=== PATIENT | female | born 1960 | race Caucasian/White ===

== ENCOUNTER → 2016-07-11 | Outpatient (CLI) | payer BC ==
[~2016-07-11] MED LIST: ACET325T38 PO; CALC-939 PO; DOCU100T2 PO; HYDR-3812 PO; IBUP-1773 PO; INUL2.5T PO; INUL2TAB8 PO; L GA1CAP2 PO; MULT-192 PO; NAPR-689 PO; [UNRECOGNIZED DRUG - CODE] PO
--- OUTSIDE RECORDS SUMMARY | 2016-07-11 11:03 | XMS REPORT | Continuity of Care Document ---
Author Author Count Includes [facility] Address Unknown Phone Unavailable Allergies Active Description Code Type Severity Reaction Onset Reported/Identified Relationship to Patient Clinical Status Yes Latex OA N/A N/A 10/20/2009 Yes sulfadoxine Drug Allergy N/A N/A 10/20/2009 Yes sulfamethoxazole [id number] Drug Allergy Unknown N/A 05/13/2014 Yes trimethoprim [id number] Drug Allergy Unknown N/A 05/13/2014 Medications Problems Date Dx Coded Attending Type Code Diagnosis Diagnosed By 02/05/2008 MAGALLON DO, TITI K 296.90 MOOD DISORDER 02/05/2008 MAGALLON DO, TITI K 625.0 DYSPAREUNIA 02/05/2008 MAGALLON DO, TITI K 296.90 MOOD DISORDER 02/05/2008 MAGALLON DO, TITI K 625.0 DYSPAREUNIA 02/05/2008 MAGALLON DO, TITI K 296.90 MOOD DISORDER 02/05/2008 MAGALLON DO, TITI K 625.0 DYSPAREUNIA 02/05/2008 MAGALLON DO, TITI K 296.90 MOOD DISORDER 02/05/2008 MAGALLON DO, TITI K 625.0 DYSPAREUNIA 02/05/2008 MAGALLON DO, TITI K 296.90 MOOD DISORDER 02/05/2008 MAGALLON DO, TITI K 625.0 DYSPAREUNIA 02/05/2008 MAGALLON DO, TITI K 296.90 MOOD DISORDER 02/05/2008 MAGALLON DO, TITI K 625.0 DYSPAREUNIA 02/05/2008 MAGALLON DO, TITI K 296.90 MOOD DISORDER 02/05/2008 MAGALLON DO, TITI K 625.0 DYSPAREUNIA 02/05/2008 MAGALLON DO, TITI K 296.90 MOOD DISORDER 02/05/2008 MAGALLON DO, TITI K 625.0 DYSPAREUNIA 02/05/2008 [employer] ROCK L 296.90 MOOD DISORDER 02/05/2008 [employer] ROCK L 625.0 DYSPAREUNIA 02/05/2008 BRITNI CARTWRIGHT APRN 296.90 MOOD DISORDER 02/05/2008 BRITNI CARTWRIGHT APRN E 625.0 DYSPAREUNIA 02/05/2008 TITI MAGALLON DO K 296.90 MOOD DISORDER 02/05/2008 SHERITA LUCAS TITI K 625.0 DYSPAREUNIA 03/31/2008 SHERITA LUCAS TIIT K V06.5 DT, TETANUS-DIPHTHERIA [Td] 03/31/2008 SHERITA LUCAS TITI K V06.5 DT, TETANUS-DIPHTHERIA [Td] 03/31/2008 SHERITA LUCAS TITI K V06.5 DT, TETANUS-DIPHTHERIA [Td] 03/31/2008 SHERITA LUCAS TITI K V06.5 DT, TETANUS-DIPHTHERIA [Td] 03/31/2008 SHERITA LUCAS TITI K V06.5 DT, TETANUS-DIPHTHERIA [Td] 03/31/2008 SHERITA LUCAS TITI K V06.5 DT, TETANUS-DIPHTHERIA [Td] 03/31/2008 SHERITA LUCAS TITI K V06.5 DT, TETANUS-DIPHTHERIA [Td] 03/31/2008 SHERITA LUCAS TITI K V06.5 DT, TETANUS-DIPHTHERIA [Td] 03/31/2008 ROCK BETTS APRN V06.5 DT, TETANUS-DIPHTHERIA [Td] 03/31/2008 BRITNI CARTWRIGHT APRN E V06.5 DT, TETANUS-DIPHTHERIA [Td] 03/31/2008 SHERITA LUCAS TITI K V06.5 DT, TETANUS-DIPHTHERIA [Td] 04/19/2008 JAY MAGALLON DOA K 524.60 TEMPOROMANDIBULAR JOINT DISORDERS UNSPECIFIED 04/19/2008 SHERITA LUCAS TITI K 524.60 TEMPOROMANDIBULAR JOINT DISORDERS UNSPECIFIED 04/19/2008 SHERITA LUCAS TITI K 524.60 TEMPOROMANDIBULAR JOINT DISORDERS UNSPECIFIED 04/19/2008 SHERITA LUCAS TITI K 524.60 TEMPOROMANDIBULAR JOINT DISORDERS UNSPECIFIED 04/19/2008 SHERITA LUCAS TITI K 524.60 TEMPOROMANDIBULAR JOINT DISORDERS UNSPECIFIED 04/19/2008 SHERITA LUCAS TITI K 524.60 TEMPOROMANDIBULAR JOINT DISORDERS UNSPECIFIED 04/19/2008 MAGALLON DO, TITI K 524.60 TEMPOROMANDIBULAR JOINT DISORDERS UNSPECIFIED 04/19/2008 MAGALLON DO, TITI K 524.60 TEMPOROMANDIBULAR JOINT DISORDERS UNSPECIFIED 04/19/2008 ROCK BETTS APRN 524.60 TEMPOROMANDIBULAR JOINT DISORDERS UNSPECIFIED 04/19/2008 CHAY BARRIENTOSBRITNI Scott 524.60 TEMPOROMANDIBULAR JOINT DISORDERS UNSPECIFIED 04/19/2008 MAGALLON DO, TITI K 524.60 TEMPOROMANDIBULAR JOINT DISORDERS UNSPECIFIED 06/10/2008 MAGALLON DO, TITI K 381.10 OTITIS MEDIA SIMPLE OR UNSPECIFIED 06/10/2008 MAGALLON DO, TITI K 382.00 OTITIS MEDIA ACUTE WITHOUT SPONTANEOUS RUPTURE EARDRUM 06/10/2008 MAGALLON DO, TITI K 388.70 EAR ACHE 06/10/2008 MAGALLON DO, TITI K 381.10 OTITIS MEDIA SIMPLE OR UNSPECIFIED 06/10/2008 MAGALLON DO, TITI K 382.00 OTITIS MEDIA ACUTE WITHOUT SPONTANEOUS RUPTURE EARDRUM 06/10/2008 MAGALLON DO, TITI K 388.70 EAR ACHE 06/10/2008 MAGALLON DO, TITI K 381.10 OTITIS MEDIA SIMPLE OR UNSPECIFIED 06/10/2008 MAGALLON DO, TITI K 382.00 OTITIS MEDIA ACUTE WITHOUT SPONTANEOUS RUPTURE EARDRUM 06/10/2008 MAGALLON DO, TITI K 388.70 EAR ACHE 06/10/2008 MAGALLON DO, TITI K 381.10 OTITIS MEDIA SIMPLE OR UNSPECIFIED 06/10/2008 MAGALLON DO, TITI K 382.00 OTITIS MEDIA ACUTE WITHOUT SPONTANEOUS RUPTURE EARDRUM 06/10/2008 MAGALLON DO, TITI K 388.70 EAR ACHE 06/10/2008 MAGALLON DO, TITI K 381.10 OTITIS MEDIA SIMPLE OR UNSPECIFIED 06/10/2008 MAGALLON DO, TITI K 382.00 OTITIS MEDIA ACUTE WITHOUT SPONTANEOUS RUPTURE EARDRUM 06/10/2008 MAGALLON DO, TITI K 388.70 EAR ACHE 06/10/2008 MAGALLON DO, TITI K 381.10 OTITIS MEDIA SIMPLE OR UNSPECIFIED 06/10/2008 MAGALLON DO, TITI K 382.00 OTITIS MEDIA ACUTE WITHOUT SPONTANEOUS RUPTURE EARDRUM 06/10/2008 MAGALLON DO, TITI K 388.70 EAR ACHE 06/10/2008 MAGALLON DO, TITI K 381.10 OTITIS MEDIA SIMPLE OR UNSPECIFIED 06/10/2008 MAGALLON DO, TITI K 382.00 OTITIS MEDIA ACUTE WITHOUT SPONTANEOUS RUPTURE EARDRUM 06/10/2008 MAGALLON DO, TITI K 388.70 EAR ACHE 06/10/2008 MAGALLON DO, TITI K 381.10 OTITIS MEDIA SIMPLE OR UNSPECIFIED 06/10/2008 MAGALLON DO, TITI K 382.00 OTITIS MEDIA ACUTE WITHOUT SPONTANEOUS RUPTURE EARDRUM 06/10/2008 MAGALLON DO, TITI K 388.70 EAR ACHE 06/10/2008 [employer] ROCK L 381.10 OTITIS MEDIA SIMPLE OR UNSPECIFIED 06/10/2008 [employer], ROCK L 382.00 OTITIS MEDIA ACUTE WITHOUT SPONTANEOUS RUPTURE EARDRUM 06/10/2008 [employer], ROCK L 388.70 EAR ACHE 06/10/2008 [employer], BRITNI E 381.10 OTITIS MEDIA SIMPLE OR UNSPECIFIED 06/10/2008 [employer], BRITNI E 382.00 OTITIS MEDIA ACUTE WITHOUT SPONTANEOUS RUPTURE EARDRUM 06/10/2008 [employer], BRITNI E 388.70 EAR ACHE 06/10/2008 MAGALLON DO, TITI K 381.10 OTITIS MEDIA SIMPLE OR UNSPECIFIED 06/10/2008 MAGALLON DO, TITI K 382.00 OTITIS MEDIA ACUTE WITHOUT SPONTANEOUS RUPTURE EARDRUM 06/10/2008 MAGALLON DO, TITI K 388.70 EAR ACHE 10/20/2009 MAGALLON DO, TITI K 692.6 CONTACT DERMATITIS AND OTHER ECZEMA, DUE TO PLANTS [EXCEPT FOOD] 10/20/2009 MAGALLON DO, TITI K 692.6 CONTACT DERMATITIS AND OTHER ECZEMA, DUE TO PLANTS [EXCEPT FOOD] 10/20/2009 MAGALLON DO, TITI K 692.6 CONTACT DERMATITIS AND OTHER ECZEMA, DUE TO PLANTS [EXCEPT FOOD] 10/20/2009 MAGALLON DO, TITI K 692.6 CONTACT DERMATITIS AND OTHER ECZEMA, DUE TO PLANTS [EXCEPT FOOD] 10/20/2009 MAGALLON DO, TITI K 692.6 CONTACT DERMATITIS AND OTHER ECZEMA, DUE TO PLANTS [EXCEPT FOOD] 10/20/2009 MAGALLON DO, TITI K 692.6 CONTACT DERMATITIS AND OTHER ECZEMA, DUE TO PLANTS [EXCEPT FOOD] 10/20/2009 MAGALLON DO, TITI K 692.6 CONTACT DERMATITIS AND OTHER ECZEMA, DUE TO PLANTS [EXCEPT FOOD] 10/20/2009 MAGALLON DO, TITI K 692.6 CONTACT DERMATITIS AND OTHER ECZEMA, DUE TO PLANTS [EXCEPT FOOD] 10/20/2009 ROCK BETTS APRN L 692.6 CONTACT DERMATITIS AND OTHER ECZEMA, DUE TO PLANTS [EXCEPT FOOD] 10/20/2009 BRITNI CARTWRIGHT APRN E 692.6 CONTACT DERMATITIS AND OTHER ECZEMA, DUE TO PLANTS [EXCEPT FOOD] 10/20/2009 MAGALLON DO, TITI K 692.6 CONTACT DERMATITIS AND OTHER ECZEMA, DUE TO PLANTS [EXCEPT FOOD] 05/03/2010 MAGALLON DO, TITI K 300.4 MO DYSTHYMIC DISORDER 05/03/2010 MAGALLON DO, TITI K 300.4 MO DYSTHYMIC DISORDER 05/03/2010 MAGALLON DO, TITI K 300.4 MO DYSTHYMIC DISORDER 05/03/2010 MAGALLON DO, TITI K 300.4 MO DYSTHYMIC DISORDER 05/03/2010 MAGALLON DO, TITI K 300.4 MO DYSTHYMIC DISORDER 05/03/2010 MAGALLON DO, TITI K 300.4 MO DYSTHYMIC DISORDER 05/03/2010 MAGALLON DO, TITI K 300.4 MO DYSTHYMIC DISORDER 05/03/2010 MAGALLON DO, TITI K 300.4 MO DYSTHYMIC DISORDER 05/03/2010 ROCK BETTS APRN L 300.4 MO DYSTHYMIC DISORDER 05/03/2010 BRITIN CARTWRIGHT APRN E 300.4 MO DYSTHYMIC DISORDER 05/03/2010 MAGALLON DO, TITI K 300.4 MO DYSTHYMIC DISORDER 05/11/2010 MAGALLON DO, TITI K 278.02 OVERWEIGHT 05/11/2010 MAGALLON DO, TITI K V77.1 SCREENING FOR DIABETES MELLITUS 05/11/2010 MAGALLON DO, TITI K 278.02 OVERWEIGHT 05/11/2010 MAGALLON DO, TITI K V77.1 SCREENING FOR DIABETES MELLITUS 05/11/2010 MAGALLON DO, TITI K 278.02 OVERWEIGHT 05/11/2010 MAGALLON DO, TITI K V77.1 SCREENING FOR DIABETES MELLITUS 05/11/2010 MAGALLON DO, TITI K 278.02 OVERWEIGHT 05/11/2010 MAGALLON DO, TITI K V77.1 SCREENING FOR DIABETES MELLITUS 05/11/2010 MAGALLON DO, TITI K 278.02 OVERWEIGHT 05/11/2010 MAGALLON DO, TITI K V77.1 SCREENING FOR DIABETES MELLITUS 05/11/2010 MAGALLON DO, TITI K 278.02 OVERWEIGHT 05/11/2010 MAGALLON DO, TITI K V77.1 SCREENING FOR DIABETES MELLITUS 05/11/2010 MAGALLON DO, TITI K 278.02 OVERWEIGHT 05/11/2010 MAGALLON DO, TITI K V77.1 SCREENING FOR DIABETES MELLITUS 05/11/2010 MAGALLON DO, TITI K 278.02 OVERWEIGHT 05/11/2010 MAGALLON DO, TITI K V77.1 SCREENING FOR DIABETES MELLITUS 05/11/2010 [employer] ROCK L 278.02 OVERWEIGHT 05/11/2010 [employer], ROCK L V77.1 SCREENING FOR DIABETES MELLITUS 05/11/2010 [employer]DONALDE E 278.02 OVERWEIGHT 05/11/2010 [employer]DE E V77.1 SCREENING FOR DIABETES MELLITUS 05/11/2010 MAGALLON DO, TIIT K 278.02 OVERWEIGHT 05/11/2010 MAGALLON DO, TITI K V77.1 SCREENING FOR DIABETES MELLITUS 06/02/2013 MAGALLON DO, TITI K 461.1 ACUTE FRONTAL SINUSITIS 06/02/2013 MAGALLON DO, TITI K 461.1 ACUTE FRONTAL SINUSITIS 06/02/2013 MAGALLON DO, TITI K 461.1 ACUTE FRONTAL SINUSITIS 06/02/2013 MAGALLON DO, TITI K 461.1 ACUTE FRONTAL SINUSITIS 06/02/2013 MAGALLON DO, TITI K 461.1 ACUTE FRONTAL SINUSITIS 06/02/2013 MAGALLON DO, TITI K 461.1 ACUTE FRONTAL SINUSITIS 06/02/2013 MAGALLON DO, TITI K 461.1 ACUTE FRONTAL SINUSITIS 06/02/2013 MAGALLON DO, TITI K 461.1 ACUTE FRONTAL SINUSITIS 06/02/2013 [employer], ROCK L 461.1 ACUTE FRONTAL SINUSITIS 06/02/2013 [employer], BRITNI E 461.1 ACUTE FRONTAL SINUSITIS 06/02/2013 MAGALLON DO, TITI K 461.1 ACUTE FRONTAL SINUSITIS 07/14/2013 MAGALLON DO, TITI K 599.0 URINARY TRACT INFECTION 07/14/2013 MAGALLON DO, TITI K 599.0 URINARY TRACT INFECTION 07/14/2013 MAGALLON DO, TITI K 599.0 URINARY TRACT INFECTION 07/14/2013 MAGALLON DO, TITI K 599.0 URINARY TRACT INFECTION 07/14/2013 MAGALLON DO, TITI K 599.0 URINARY TRACT INFECTION 07/14/2013 MAGALLON DO, TITI K 599.0 URINARY TRACT INFECTION 07/14/2013 MAGALLON DO, TITI K 599.0 URINARY TRACT INFECTION 07/14/2013 [employer], ROCK L 599.0 URINARY TRACT INFECTION 07/14/2013 BRITNI CARTWRIGHT APRN 599.0 URINARY TRACT INFECTION 07/14/2013 MAGALLON DO, TITI K 599.0 URINARY TRACT INFECTION 07/20/2013 MAGALLON DO, TITI K V65.49 OTHER SPECIFIED COUNSELING 07/20/2013 MAGALLON DO, TITI K 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, ROUTINE 07/20/2013 MAGALLON DO, TITI K V76.10 BREAST CANCER SCREENING 07/20/2013 MAGALLON DO, TITI K V65.49 OTHER SPECIFIED COUNSELING 07/20/2013 MAGALLON DO, TITI K 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, ROUTINE 07/20/2013 MAGALLON DO, TITI K V76.10 BREAST CANCER SCREENING 07/20/2013 MAGALLON DO, TITI K V65.49 OTHER SPECIFIED COUNSELING 07/20/2013 MAGALLON DO, TITI K 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, ROUTINE 07/20/2013 MAGALLON DO, TITI K V76.10 BREAST CANCER SCREENING 07/20/2013 MAGALLON DO, TITI K V65.49 OTHER SPECIFIED COUNSELING 07/20/2013 MAGALLON DO, TITI K 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, ROUTINE 07/20/2013 MAGALLON DO, TITI K V76.10 BREAST CANCER SCREENING 07/20/2013 MAGALLON DO, TITI K V65.49 OTHER SPECIFIED COUNSELING 07/20/2013 MAGALLON DO, TITI K 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, ROUTINE 07/20/2013 MAGALLON DO, TITI K V76.10 BREAST CANCER SCREENING 07/20/2013 MAGALLON DO, TITI K V65.49 OTHER SPECIFIED COUNSELING 07/20/2013 MAGLALON DO, TITI K 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, ROUTINE 07/20/2013 MAGALLON DO, TITI K V76.10 BREAST CANCER SCREENING 07/20/2013 [employer]ESLEN TaylorCY L V65.49 OTHER SPECIFIED COUNSELING 07/20/2013 [employer], ROCK L 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, ROUTINE 07/20/2013 [employer], ROCK L V76.10 BREAST CANCER SCREENING 07/20/2013 BIRTNI CARTWRIGHT APRN V65.49 OTHER SPECIFIED COUNSELING 07/20/2013 BRITNI CARTWRIGHT APRN 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, ROUTINE 07/20/2013 BRITNI CARTWRIGHT APRN V76.10 BREAST CANCER SCREENING 07/20/2013 TITI MAGALLON DO V65.49 OTHER SPECIFIED COUNSELING 07/20/2013 TITI MAGALLON DO 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, ROUTINE 07/20/2013 TITI MAGALLON DO V76.10 BREAST CANCER SCREENING 08/31/2013 TITI MAGALLON DO K 681.10 UNSPECIFIED CELLULITIS AND ABSCESS OF TOE 08/31/2013 JAY MAGALLON DOA K 681.10 UNSPECIFIED CELLULITIS AND ABSCESS OF TOE 08/31/2013 JAY MAGALLON DOA K 681.10 UNSPECIFIED CELLULITIS AND ABSCESS OF TOE 08/31/2013 JAY MAGALLON DOA K 681.10 UNSPECIFIED CELLULITIS AND ABSCESS OF TOE 08/31/2013 JAY MAGALLON DOA K 681.10 UNSPECIFIED CELLULITIS AND ABSCESS OF TOE 08/31/2013 ROCK BETTS APRN 681.10 UNSPECIFIED CELLULITIS AND ABSCESS OF TOE 08/31/2013 BRITNI CARTWRIGHT APRN 681.10 UNSPECIFIED CELLULITIS AND ABSCESS OF TOE 08/31/2013 JAY MAGALLON DOA K 681.10 UNSPECIFIED CELLULITIS AND ABSCESS OF TOE 09/22/2013 JAY MAGALLON DOA K 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.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 09/22/2013 JAY MAGALLON DOA K 681.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 09/22/2013 JAY MAGALLON DOA K 681.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 09/22/2013 JAY MAGALLON DOA K 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.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 09/22/2013 ROCK BETTS APRN 681.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 09/22/2013 BRITNI CARTWRIGHT APRN 681.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 09/22/2013 JAY MAGALLON DOA K 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.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 10/07/2013 MAGALLON DO, TITI K 623.5 LEUKORRHEA NOT SPECIFIED INFECTIVE 10/07/2013 MAGALLON DO, TITI K 878.6 OPEN WOUND OF VAGINA WITHOUT COMPLICATION 10/07/2013 MAGALLON DO, TITI K 623.5 LEUKORRHEA NOT SPECIFIED INFECTIVE 10/07/2013 MAGALLON DO, TITI K 878.6 OPEN WOUND OF VAGINA WITHOUT COMPLICATION 10/07/2013 MAGALLON DO, TITI K 623.5 LEUKORRHEA NOT SPECIFIED INFECTIVE 10/07/2013 MAGALLON DO, TITI K 878.6 OPEN WOUND OF VAGINA WITHOUT COMPLICATION 10/07/2013 [employer], ROCK L 623.5 LEUKORRHEA NOT SPECIFIED INFECTIVE 10/07/2013 [employer], ROCK L 878.6 OPEN WOUND OF VAGINA WITHOUT COMPLICATION 10/07/2013 [employer], BRITNI E 623.5 LEUKORRHEA NOT SPECIFIED INFECTIVE 10/07/2013 [employer], BRITNI E 878.6 OPEN WOUND OF VAGINA WITHOUT COMPLICATION 10/07/2013 MAGALLON DO, TITI K 623.5 LEUKORRHEA NOT SPECIFIED INFECTIVE 10/07/2013 MAGALLON DO, TITI K 878.6 OPEN WOUND OF VAGINA WITHOUT COMPLICATION 02/14/2014 MAGALLON DO, TITI K 578.1 BLOOD IN STOOL 02/14/2014 MAGALLON DO, TITI K 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 CONSCIOUSNESS UNSPECIFIED 02/14/2014 [employer], ROCK L 578.1 BLOOD IN STOOL 02/14/2014 [employer], ROCK L 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 CONSCIOUSNESS UNSPECIFIED 02/14/2014 [employer], BRITNI E 578.1 BLOOD IN STOOL 02/14/2014 [employer], BRITNI E 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 CONSCIOUSNESS UNSPECIFIED 02/14/2014 MAGALLON DO, TITI K 578.1 BLOOD IN STOOL 02/14/2014 MAGALLON DO, TITI K 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 CONSCIOUSNESS UNSPECIFIED 03/24/2014 [employer], BRITNI E V04.81 FLU SHOT 03/24/2014 TITI MAGALLON DO V04.81 FLU SHOT 05/13/2014 ERNESTO SU[employer]Z [employer] Ot V65.49 05/13/2014 MAIRA SUAREZIDI A [employer] Ot V72.31 05/13/2014 MAIRA SUAREZIDI A [employer] Ot V76.12 05/13/2014 BRITNI CARTWRIGHT [employer] Ot 578.1 05/13/2014 BRITNI CARTWRIGHT [employer] Ot 851.80 05/13/2014 DIAMANTE SARMIENTO, SOSA Cooley Ot 719.42 05/13/2014 DIAMANTE SARMIENTO, SOSA Cooley Ot 924.8 05/13/2014 DIAMANTE SARMIENTO, SOSA Cooley Ot E816.0 05/17/2014 MAIRA SUAREZIDI A [employer] Ot V65.49 05/17/2014 MAIRA SUAREZIDI A [employer] Ot V72.31 05/17/2014 MAIRA SUAREZIDI A [employer] Ot V76.12 05/17/2014 BRITNI CARTWRIGHT [employer] Ot 578.1 05/17/2014 BR[employer]NI [employer] Ot 851.80 06/10/2014 TITI MAGALLON DO 847.0 SPRAIN OF NECK 06/10/2014 TITI MAGALLON DO 923.00 CONTUSION OF SHOULDER REGION 11/09/2014 BRITNI CARTWRIGHT [employer] Ot V76.12 Procedures Code Description [place] [address] UA LONG DIP 07/14 70335 MAMMOGRAM, SCREENING 07/20/2013 49709 ROUTINE VENIPUNCTURE 09/22/2013 21203 LIVER PANEL (LFT) 09/22/2013 50683 GC/CHLAM PROBE ([facility]) 10/07/2013 53004 UA LONG DIP 10/07 20332 CULTURE URINE 56755 CULTURE UROGENITAL 10/10/2013 20989 ROUTINE VENIPUNCTURE 01/25/2014 22857 LIVER PANEL (LFT) 01/25/[address] HEAD/BRAIN W/O DYE 02/14/2014 68871 HEMOCCULT 2013 28933 UA LONG DIP 06/13 33872 CULTURE UROGENITAL 06/13/2014 92046 CULTURE URINE Results Encounters ACCT No. Visit Date/Time Discharge Status Pt. Type Provider Facility Loc./Unit Complaint [id number] 06/13/2014 10:09:00 06/13/2014 23: 59:59 CLS Outpatient MAGALLON DOTITI [id number] 03/24/2014 14:18:00 03/24/2014 23: 59:59 CLS Outpatient ZAIDASAY BRITNI BARRIENTOS Scott [id number] 02/15/2014 14:08:00 02/15/2014 23: 59:59 CLS Outpatient ROCK BETTS APRN [id number] 02/14/2014 14:13:00 02/14/2014 23: 59:59 CLS Outpatient MAGALLON DOTITI [id number] 01/25/2014 08:09:00 01/25/2014 23: 59:59 CLS Outpatient MAGALLON DOTITI [id number] 10/07/2013 10:11:00 10/07/2013 23: 59:59 CLS Outpatient MAGALLON DOTITI [id number] 09/22/2013 11:58:00 09/22/2013 23: 59:59 CLS Outpatient MAGALLON DOTITI [id number] 08/31/2013 11:06:00 08/31/2013 23: 59:59 CLS Outpatient MAGALLON DOTITI [id number] 07/20/2013 07:53:00 07/20/2013 23: 59:59 CLS Outpatient MAGALLON DOTITI [id number] 07/14/2013 10:24:00 07/14/2013 23: 59:59 CLS Outpatient MAGALLON DOTITI [id number] 06/02/2013 15:25:00 06/02/2013 23: 59:59 CLS Outpatient MAGALLON DOTITI [id number] 05/04/2012 15:04:57 RECURRING
--- NOTE | 2016-07-12 12:02 | Diagnostic Imaging Report ---
Bilateral screening mammogram. The current study was also evaluated with a Computer Aided Detection (CAD) system. INDICATION: Screening. No current complaints stated on the questionnaire. COMPARISON: 09/27/2014. FINDINGS: The breasts are composed of scattered fibroglandular densities. Occasional benign-appearing calcification is seen. Allowing for technique and positional differences, no suspicious change is seen. IMPRESSION: No significant change. ACR BI-RADS Category 2: Benign findings. Result letter will be mailed to the patient. Note: At least 10% of breast cancer is not imaged by mammography. Dictated by: Dictated on workstation # [id number]
== END ==
LOC: RAD 10:58
PROVIDERS: ATTEND Nurse Practitioner Family
DX: Z12.31 Encounter for screening mammogram for malignant neoplasm of breast (principal)
CPT/HCPCS: 77067

== ENCOUNTER → 2016-07-29 | Outpatient (CLI) | payer BC ==
[~2016-07-29] MED LIST changes: +CATHETER FLUSH 10 ML SYR IV PRN; +IOHEXOL 350 MG/ML 100 ML (OMNIPAQUE 350) VIAL IV ONE; +NS 100 ML (IVPB) BAG IV ONE
--- OUTSIDE RECORDS SUMMARY | 2016-07-29 12:30 | XMS REPORT | Continuity of Care Document ---
Author Author [facility] Address Unknown Phone Unavailable Allergies Active Description Code Type Severity Reaction Onset Reported/Identified Relationship to Patient Clinical Status Yes Latex OA N/A N/A 10/20/2009 Yes sulfadoxine Drug Allergy N/A N/A 10/20/2009 Yes sulfamethoxazole [id number] Drug Allergy Unknown N/A 05/13/2014 Yes trimethoprim [id number] Drug Allergy Unknown N/A 05/13/2014 Medications Problems [...] DO, TITI K 625.0 DYSPAREUNIA 02/05/2008 [employer]PES[employer] INTERNET PROJECT MANAGER, ROCK L 296.90 MOOD DISORDER 02/05/2008 [employer] INTERNET PROJECT MANAGER ROCK L 625.0 DYSPAREUNIA 02/05/2008 BRITNI CARTWRIGHT APRN 296.90 MOOD DISORDER 02/05/2008 BRITNI CARTWRIGHT APRN E 625.0 DYSPAREUNIA 02/05/2008 TITI MAGALLON DO K 296.90 MOOD DISORDER 02/05/2008 SHERITA LUCAS TITI K 625.0 DYSPAREUNIA 03/31/2008 SHERITA LUCAS TITI K V06.5 DT, [...] TITI K 388.70 EAR ACHE 06/10/2008 ALPES[employer] INTERNET PROJECT MANAGER, ROCK L 381.10 OTITIS MEDIA SIMPLE OR UNSPECIFIED 06/10/2008 [employer] INTERNET PROJECT MANAGER, ROCK L 382.00 OTITIS MEDIA ACUTE WITHOUT SPONTANEOUS RUPTURE EARDRUM 06/10/2008 ALPES[employer] INTERNET PROJECT MANAGER, ROCK L 388.70 EAR ACHE 06/10/2008 HELLWIG INTERNET PROJECT MANAGER, BRITNI E 381.10 OTITIS MEDIA SIMPLE OR UNSPECIFIED 06/10/2008 HELLWIG INTERNET PROJECT MANAGER, BRITNI E 382.00 OTITIS MEDIA ACUTE WITHOUT SPONTANEOUS RUPTURE EARDRUM 06/10/2008 HELLWIG INTERNET PROJECT MANAGER, BRITNI E 388.70 EAR ACHE 06/10/2008 MAGALLON [...] APRN L 300.4 MO DYSTHYMIC DISORDER 05/03/2010 BRITNI CARTWRIGHT APRN E 300.4 MO DYSTHYMIC DISORDER [...] V77.1 SCREENING FOR DIABETES MELLITUS 05/11/2010 [employer] INTERNET PROJECT MANAGER ROCK L 278.02 OVERWEIGHT 05/11/2010 [employer] INTERNET PROJECT MANAGER, ROCK L V77.1 SCREENING FOR DIABETES MELLITUS 05/11/2010 HELLWIG INTERNET PROJECT MANAGERDONALDE E 278.02 OVERWEIGHT 05/11/2010 HELLWIG INTERNET PROJECT MANAGERDONALDE E V77.1 SCREENING FOR DIABETES MELLITUS 05/11/2010 [...] K 461.1 ACUTE FRONTAL SINUSITIS 06/02/2013 [employer] INTERNET PROJECT MANAGER, ROCK L 461.1 ACUTE FRONTAL SINUSITIS 06/02/2013 HELLWIG INTERNET PROJECT MANAGER, BRITNI E 461.1 ACUTE FRONTAL SINUSITIS 06/02/2013 [...] K 599.0 URINARY TRACT INFECTION 07/14/2013 ALPES[employer] INTERNET PROJECT MANAGER, ROCK L 599.0 URINARY TRACT INFECTION 07/14/2013 BRITNI CARTWRIGHT APRN 599.0 URINARY TRACT INFECTION 07/14/2013 MAGALLON DO, TITI K 599.0 URINARY TRACT INFECTION 07/20/2013 MAGALLON DO, TITI K V65.49 OTHER SPECIFIED COUNSELING 07/20/2013 MAGALLON DO, TITI K V72.31 MANAGER DOMESTIC EXAM, ROUTINE 07/20/2013 MAGALLON DO, TITI K V76.10 BREAST CANCER SCREENING 07/20/2013 MAGALLON DO, TITI K V65.49 OTHER SPECIFIED COUNSELING 07/20/2013 MAGALLON DO, TITI K V72.31 MANAGER DOMESTIC EXAM, ROUTINE 07/20/2013 MAGALLON DO, TTII K V76.10 BREAST CANCER SCREENING 07/20/2013 MAGALLON DO, TITI K V65.49 OTHER SPECIFIED COUNSELING 07/20/2013 MAGALLON DO, TITI K V72.31 MANAGER DOMESTIC EXAM, ROUTINE 07/20/2013 MAGALLON DO, TITI K V76.10 BREAST CANCER SCREENING 07/20/2013 MAGALLON DO, TITI K V65.49 OTHER SPECIFIED COUNSELING 07/20/2013 MAGALLON DO, TITI K V72.31 MANAGER DOMESTIC EXAM, ROUTINE 07/20/2013 MAGALLON DO, TITI K V76.10 BREAST CANCER SCREENING 07/20/2013 MAGALLON DO, TITI K V65.49 OTHER SPECIFIED COUNSELING 07/20/2013 MAGALLON DO, TITI K V72.31 MANAGER DOMESTIC EXAM, ROUTINE 07/20/2013 MAGALLON DO, ITTI K V76.10 BREAST CANCER SCREENING 07/20/2013 MAGALLON DO, TITI K V65.49 OTHER SPECIFIED COUNSELING 07/20/2013 MAGALLON DO, TITI K V72.31 MANAGER DOMESTIC EXAM, ROUTINE 07/20/2013 MAGALLNO DO, TITI K V76.10 BREAST CANCER SCREENING 07/20/2013 ALPESH INTERNET PROJECT MANAGERLEN TaylorCY L V65.49 OTHER SPECIFIED COUNSELING 07/20/2013 [employer] INTERNET PROJECT MANAGER, ROCK L V72.31 MANAGER DOMESTIC EXAM, ROUTINE 07/20/2013 ALPES[employer] INTERNET PROJECT MANAGER, ROCK L V76.10 BREAST CANCER SCREENING 07/20/2013 BRITNI CARTWRIGHT APRN V65.49 OTHER SPECIFIED COUNSELING 07/20/2013 BRITNI CARTWRIGHT APRN V72.31 MANAGER DOMESTIC EXAM, ROUTINE 07/20/2013 BRITNI CARTWRIGHT APRN V76.10 BREAST CANCER SCREENING 07/20/2013 TITI MAGALLON DO V65.49 OTHER SPECIFIED COUNSELING 07/20/2013 TITI MAGALLON DO V72.31 MANAGER DOMESTIC EXAM, ROUTINE 07/20/2013 TITI MAGALLON DO V76.10 [...] UNSPECIFIED CELLULITIS AND ABSCESS OF TOE 08/31/2013 BRITIN CARTWRIGHT APRN 681.10 UNSPECIFIED CELLULITIS AND ABSCESS [...] WOUND OF VAGINA WITHOUT COMPLICATION 10/07/2013 ALPESH INTERNET PROJECT MANAGER, ROCK L 623.5 LEUKORRHEA NOT SPECIFIED INFECTIVE 10/07/2013 ALPESH INTERNET PROJECT MANAGER, ROCK L 878.6 OPEN WOUND OF VAGINA WITHOUT COMPLICATION 10/07/2013 HELLWIG INTERNET PROJECT MANAGER, BRITNI E 623.5 LEUKORRHEA NOT SPECIFIED INFECTIVE 10/07/2013 HELLWIG INTERNET PROJECT MANAGER, BRITNI E 878.6 OPEN WOUND OF VAGINA [...] WITH STATE OF CONSCIOUSNESS UNSPECIFIED 02/14/2014 ALPESH INTERNET PROJECT MANAGER, ROCK L 578.1 BLOOD IN STOOL 02/14/2014 ALPESH INTERNET PROJECT MANAGER, ROCK L 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 CONSCIOUSNESS UNSPECIFIED 02/14/2014 HELLWIG INTERNET PROJECT MANAGER, BRITNI E 578.1 BLOOD IN STOOL 02/14/2014 HELLWIG INTERNET PROJECT MANAGER, BRITNI E 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 CONSCIOUSNESS UNSPECIFIED 02/14/2014 MAGALLON DO, TITI K 578.1 BLOOD IN STOOL 02/14/2014 MAGALLON DO, TITI K 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 CONSCIOUSNESS UNSPECIFIED 03/24/2014 HELLWIG INTERNET PROJECT MANAGER, BRITNI E V04.81 FLU SHOT 03/24/2014 SHERITA LUCAS TITI Cooley V04.81 FLU SHOT 05/13/2014 ERICKMAIRAERNESTO A INTERNET PROJECT MANAGER Ot V65.49 05/13/2014 ERICKMAIRAERNESTO A INTERNET PROJECT MANAGER Ot V72.31 05/13/2014 ERICKMAIRAERNESTO A INTERNET PROJECT MANAGER Ot V76.12 05/13/2014 BRITNI CARTWRIGHT INTERNET PROJECT MANAGER Ot 578.1 05/13/2014 BRITNI CARTWRIGHT INTERNET PROJECT MANAGER Ot 851.80 05/13/2014 SOSA BOBBY MD Ot 719.42 JOINT PAIN-UP/ARM 05/13/2014 SOSA BOBBY MD Ot 924.8 MULTIPLE CONTUSIONS NEC 05/13/2014 SOSA BOBBY MD Ot E816.0 LOSS CONTROL MV ACC-DRIV 05/17/2014 ERICK, ERNESTO A INTERNET PROJECT MANAGER Ot V65.49 05/17/2014 ERNESTO SUAREZ INTERNET PROJECT MANAGER Ot V72.31 05/17/2014 ERICK, ERNESTO A INTERNET PROJECT MANAGER Ot V76.12 05/17/2014 BRITNI CARTWRIGHT INTERNET PROJECT MANAGER Ot 578.1 05/17/2014 BRITNI CARTWRIGHT INTERNET PROJECT MANAGER Ot 851.80 06/10/2014 TITI MAGALLON DO 847.0 SPRAIN OF NECK 06/10/2014 TITI MAGALLON DO 923.00 CONTUSION OF SHOULDER REGION 11/09/2014 BRITNI CARTWRIGHT INTERNET PROJECT MANAGER Ot V76.12 07/11/2016 EIRCK, ERNESTO A INTERNET PROJECT MANAGER Ot V65.49 OTHER SPECIFIED COUNSELING 07/11/2016 ERNESTO SUAREZ A INTERNET PROJECT MANAGER Ot V72.31 ROUTINE GYNECOLOGICAL EXAMINATION 07/11/2016 ERICKERNESTO ARCE A INTERNET PROJECT MANAGER Ot V76.12 OTH SCREEN MAMMO-MALIGN NEOPLASM OF JOSEPHINE 07/11/2016 BRITNI CARTWRIGHT INTERNET PROJECT MANAGER Ot 578.1 BLOOD IN STOOL 07/11/2016 BRITNI CARTWRIGHT INTERNET PROJECT MANAGER Ot 851.80 BRAIN LACERATION NEC 07/11/2016 BRITNI CARTWRIGHT INTERNET PROJECT MANAGER Ot V76.12 OTH SCREEN MAMMO-MALIGN NEOPLASM OF JOSEPHINE 07/11/2016 ADAM VALENCIA DO Ot V72.84 EXAM PRE-OPERATIVE NOS 07/12/2016 EVGENY MURPHY Claudia DA SILVA Ot Z12.31 ENCNTR SCREEN MAMMOGRAM FOR MALIGNANT NE 07/12/2016 EVGENY MURPHY ASSEMBLER INSTALLER STRUCTURES Ot Z12.31 ENCNTR SCREEN MAMMOGRAM FOR MALIGNANT NE 07/24/2016 EVGENY MURPHY Claudia DA SILVA Ot Z12.31 ENCNTR SCREEN MAMMOGRAM FOR MALIGNANT NE Procedures Code [place] [address] UA LONG DIP 07/14 40187 MAMMOGRAM, SCREENING 07/20/2013 03775 ROUTINE VENIPUNCTURE 09/22/2013 09258 LIVER PANEL (LFT) 09/22/2013 54864 GC/CHLAM PROBE (STATE) 10/07/2013 78689 UA LONG DIP 10/07 25952 CULTURE URINE 78461 CULTURE UROGENITAL 10/10/2013 19354 ROUTINE VENIPUNCTURE 01/25/2014 34080 LIVER PANEL (LFT) 01/25/[address] HEAD/BRAIN W/O DYE 02/14/2014 99350 HEMOCCULT 2013 86681 UA LONG DIP 06/13 81272 CULTURE UROGENITAL 06/13/2014 55905 CULTURE URINE Results Encounters ACCT No. Visit Date/Time Discharge Status Pt. Type Provider Facility Loc./Unit Complaint [id number] 06/13/2014 10:09:00 06/13/2014 23: 59:59 CLS Outpatient TITI MAGALLON DO [id number] 03/24/2014 14:18:00 03/24/2014 23: 59:59 CLS Outpatient BRITNI CARTWRIGHT APRN [id number] 02/15/2014 14:08:00 02/15/2014 23: 59:59 CLS Outpatient ROCK BETTS APRN [id number] 02/14/2014 14:13:00 02/14/2014 23: 59:59 CLS Outpatient TITI MAGALLON DO [id number] 01/25/2014 08:09:00 01/25/2014 23: 59:59 CLS Outpatient TITI MAGALLON DO [id number] 10/07/2013 10:11:00 10/07/2013 23: 59:59 CLS Outpatient TITI MAGALLON DO [id number] 09/22/2013 11:58:00 09/22/2013 23: 59:59 CLS Outpatient TITI MAGALLON DO [id number] 08/31/2013 11:06:00 08/31/2013 23: 59:59 CLS Outpatient TITI MAGALLON DO [id number] 07/20/2013 07:53:00 07/20/2013 23: 59:59 CLS Outpatient TITI MAGALLON DO [id number] 07/14/2013 10:24:00 07/14/2013 23: 59:59 CLS Outpatient TITI MAGALLON DO [id number] 06/02/2013 15:25:00 06/02/2013 23: 59:59 [place] [id number] 05/04/2012 15:04:57 RECURRING
[2016-07-29 13:07] LABS: BLOOD UREA NITROGEN 16 MG/DL (7-18); BUN/CREATININE RATIO 19; CREATININE SERUM 0.83 MG/DL (0.60-1.30); GFR ESTIMATED > 60
--- NOTE | 2016-07-29 14:39 | Diagnostic Imaging Report ---
PROCEDURE: CT pelvis with and without contrast. TECHNIQUE: After oral contrast administration, imaging was obtained from the iliac crest to the lesser trochanters. Repeat imaging was performed after intravenous contrast administration. INDICATION: Pelvic pain, nausea. COMPARISON: None. DISCUSSION: The uterus is surgically absent. The urinary bladder is unremarkable. The visualized large and small bowel loops appear within normal limits. There is no ascites or pathologically enlarged lymph nodes identified. No osseous abnormality identified. IMPRESSION: 1. Status post hysterectomy. No acute abnormality otherwise identified within the pelvis. Dictated by: Dictated on workstation # [id number]
== END ==
LOC: RAD 12:26
PROVIDERS: ATTEND Obstetrics & Gynecology
DX: R10.2 Pelvic and perineal pain (principal); K59.09 Other constipation; N39.46 Mixed incontinence; Z84.2 Family history of other diseases of the genitourinary system
CPT/HCPCS: 36415; 72194; 82565; 84520

== ENCOUNTER → 2016-08-07 | Outpatient (CLI) | payer BC ==
[~2016-08-07] MED LIST changes: -CATHETER FLUSH 10 ML SYR IV PRN; -IOHEXOL 350 MG/ML 100 ML (OMNIPAQUE 350) VIAL IV ONE; -NS 100 ML (IVPB) BAG IV ONE
--- OUTSIDE RECORDS SUMMARY | 2016-08-07 15:04 | XMS REPORT | Continuity of Care Document ---
Author Author [facility] Address Unknown Phone Unavailable Allergies Active Description Code Type Severity Reaction Onset Reported/Identified Relationship to Patient Clinical Status Yes Latex OA N/A N/A 10/20/2009 Yes sulfadoxine Drug Allergy N/A N/A 10/20/2009 Yes sulfamethoxazole [id number] Drug Allergy Unknown N/A 05/13/2014 Yes trimethoprim [id number] Drug Allergy Unknown N/A 05/13/2014 Medications Problems [...] DO, TITI K 625.0 DYSPAREUNIA 02/05/2008 [employer] CO FOUNDER AND CEO, ROCK L 296.90 MOOD DISORDER 02/05/2008 AL[employer] CO FOUNDER AND CEO ROCK L 625.0 DYSPAREUNIA 02/05/2008 BRITNI CARTWRIGHT [...] TITI K 388.70 EAR ACHE 06/10/2008 AL[employer]H CO FOUNDER AND CEO, ROCK L 381.10 OTITIS MEDIA SIMPLE OR UNSPECIFIED 06/10/2008 AL[employer]H CO FOUNDER AND CEO, ROCK L 382.00 OTITIS MEDIA ACUTE WITHOUT SPONTANEOUS RUPTURE EARDRUM 06/10/2008 ALPESH CO FOUNDER AND CEO, ROCK L 388.70 EAR ACHE 06/10/2008 HELLWIG CO FOUNDER AND CEO, BRITNI E 381.10 OTITIS MEDIA SIMPLE OR UNSPECIFIED 06/10/2008 HELLWIG CO FOUNDER AND CEO, BRITNI E 382.00 OTITIS MEDIA ACUTE WITHOUT SPONTANEOUS RUPTURE EARDRUM 06/10/2008 HELLWIG CO FOUNDER AND CEO, BRITNI E 388.70 EAR ACHE 06/10/2008 MAGALLON [...] TITI K 300.4 MO DYSTHYMIC DISORDER 05/03/2010 MAGLALON DO, TITI K 300.4 MO DYSTHYMIC DISORDER [...] V77.1 SCREENING FOR DIABETES MELLITUS 05/11/2010 AL[employer]H CO FOUNDER AND CEO ROCK L 278.02 OVERWEIGHT 05/11/2010 ALPESH CO FOUNDER AND CEO, ROCK L V77.1 SCREENING FOR DIABETES MELLITUS 05/11/2010 HELLWIG CO FOUNDER AND CEODONALDE E 278.02 OVERWEIGHT 05/11/2010 HELLWIG CO FOUNDER AND CEODONALDE E V77.1 SCREENING FOR DIABETES MELLITUS 05/11/2010 [...] K 461.1 ACUTE FRONTAL SINUSITIS 06/02/2013 ALPESH CO FOUNDER AND CEO, ROCK L 461.1 ACUTE FRONTAL SINUSITIS 06/02/2013 HELLWIG CO FOUNDER AND CEO, BRITNI E 461.1 ACUTE FRONTAL SINUSITIS 06/02/2013 [...] K 599.0 URINARY TRACT INFECTION 07/14/2013 ALPESH CO FOUNDER AND CEO, ROCK L 599.0 URINARY TRACT INFECTION 07/14/2013 BRITNI CARTWRIGHT APRN 599.0 URINARY TRACT INFECTION 07/14/2013 MAGALLON DO, TITI K 599.0 URINARY TRACT INFECTION 07/20/2013 MAGALLON DO, TITI K V65.49 OTHER SPECIFIED COUNSELING 07/20/2013 MAGALLON DO, TITI K V72.31 SANITATION TRUCK DRIVER EXAM, ROUTINE 07/20/2013 MAGALLON DO, TITI K V76.10 BREAST CANCER SCREENING 07/20/2013 MAGALLON DO, TITI K V65.49 OTHER SPECIFIED COUNSELING 07/20/2013 MAGALLON DO, TITI K V72.31 SANITATION TRUCK DRIVER EXAM, ROUTINE 07/20/2013 MAGALLON DO, TITI K V76.10 BREAST CANCER SCREENING 07/20/2013 MAGALLON DO, TITI K V65.49 OTHER SPECIFIED COUNSELING 07/20/2013 MAGALLON DO, TITI K V72.31 SANITATION TRUCK DRIVER EXAM, ROUTINE 07/20/2013 MAGALLON DO, TITI K V76.10 BREAST CANCER SCREENING 07/20/2013 MAGALLON DO, TITI K V65.49 OTHER SPECIFIED COUNSELING 07/20/2013 MAGALLON DO, TITI K V72.31 SANITATION TRUCK DRIVER EXAM, ROUTINE 07/20/2013 MAGALLON DO, TITI K V76.10 BREAST CANCER SCREENING 07/20/2013 MAGALLON DO, TITI K V65.49 OTHER SPECIFIED COUNSELING 07/20/2013 MAGALLON DO, TITI K V72.31 SANITATION TRUCK DRIVER EXAM, ROUTINE 07/20/2013 MAGALLON DO, TITI K V76.10 BREAST CANCER SCREENING 07/20/2013 MAGALLON DO, TITI K V65.49 OTHER SPECIFIED COUNSELING 07/20/2013 MAGALLON DO, TITI K V72.31 SANITATION TRUCK DRIVER EXAM, ROUTINE 07/20/2013 MAGALLON DO, TITI K V76.10 BREAST CANCER SCREENING 07/20/2013 ALPESH CO FOUNDER AND CEOLEN TaylorCY L V65.49 OTHER SPECIFIED COUNSELING 07/20/2013 ALPESH CO FOUNDER AND CEO, ROCK L V72.31 SANITATION TRUCK DRIVER EXAM, ROUTINE 07/20/2013 ALPESH CO FOUNDER AND CEO, ROCK L V76.10 BREAST CANCER SCREENING 07/20/2013 BRITNI CARTWRIGHT APRN V65.49 OTHER SPECIFIED COUNSELING 07/20/2013 BRITNI CARTWRIGHT APRN V72.31 SANITATION TRUCK DRIVER EXAM, ROUTINE 07/20/2013 BRITNI CARTWRIGHT APRN V76.10 BREAST CANCER SCREENING 07/20/2013 TITI MAGALLON DO V65.49 OTHER SPECIFIED COUNSELING 07/20/2013 TITI MAGALLON DO V72.31 SANITATION TRUCK DRIVER EXAM, ROUTINE 07/20/2013 TITI MAGALLON DO V76.10 [...] WOUND OF VAGINA WITHOUT COMPLICATION 10/07/2013 ALPESH CO FOUNDER AND CEO, ROCK L 623.5 LEUKORRHEA NOT SPECIFIED INFECTIVE 10/07/2013 ALPESH CO FOUNDER AND CEO, ROCK L 878.6 OPEN WOUND OF VAGINA WITHOUT COMPLICATION 10/07/2013 HELLWIG CO FOUNDER AND CEO, BRITNI E 623.5 LEUKORRHEA NOT SPECIFIED INFECTIVE 10/07/2013 HELLWIG CO FOUNDER AND CEO, BRITNI E 878.6 OPEN WOUND OF VAGINA [...] WITH STATE OF CONSCIOUSNESS UNSPECIFIED 02/14/2014 ALPESH CO FOUNDER AND CEO, ROCK L 578.1 BLOOD IN STOOL 02/14/2014 ALPESH CO FOUNDER AND CEO, ROCK L 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 CONSCIOUSNESS UNSPECIFIED 02/14/2014 HELLWIG CO FOUNDER AND CEO, BRITNI E 578.1 BLOOD IN STOOL 02/14/2014 HELLWIG CO FOUNDER AND CEO, BRITNI E 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 CONSCIOUSNESS UNSPECIFIED 02/14/2014 MAGALLON DO, TITI K 578.1 BLOOD IN STOOL 02/14/2014 MAGALLON DO, TITI K 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 CONSCIOUSNESS UNSPECIFIED 03/24/2014 HELLWIG CO FOUNDER AND CEO, BRITNI E V04.81 FLU SHOT 03/24/2014 SHERITA LUCAS TITI Cooley V04.81 FLU SHOT 05/13/2014 ERICKMAIRAERNESTO A CO FOUNDER AND CEO Ot V65.49 05/13/2014 ERICKMAIRAERNESTO A CO FOUNDER AND CEO Ot V72.31 05/13/2014 ERICKMAIRAERNESTO A CO FOUNDER AND CEO Ot V76.12 05/13/2014 BRITNI CARTWRIGHT CO FOUNDER AND CEO Ot 578.1 05/13/2014 BRITNI CARTWRIGHT CO FOUNDER AND CEO Ot 851.80 05/13/2014 SOSA BOBBY MD Ot 719.42 JOINT PAIN-UP/ARM 05/13/2014 SOSA BOBBY MD Ot 924.8 MULTIPLE CONTUSIONS NEC 05/13/2014 SOSA BOBBY MD Ot E816.0 LOSS CONTROL MV ACC-DRIV 05/17/2014 ERICK, ERNESTO A CO FOUNDER AND CEO Ot V65.49 05/17/2014 ERNESTO SUAREZ CO FOUNDER AND CEO Ot V72.31 05/17/2014 ERICK, ERNESTO A CO FOUNDER AND CEO Ot V76.12 05/17/2014 BRITNI CARTWRIGHT CO FOUNDER AND CEO Ot 578.1 05/17/2014 BRITNI CARTWRIGHT CO FOUNDER AND CEO Ot 851.80 06/10/2014 TITI MAGALLON DO 847.0 SPRAIN OF NECK 06/10/2014 TITI MAGALLON DO 923.00 CONTUSION OF SHOULDER REGION 11/09/2014 BRITNI CARTWRIGHT CO FOUNDER AND CEO Ot V76.12 07/11/2016 ERICK, ERNESTO A CO FOUNDER AND CEO Ot V65.49 OTHER SPECIFIED COUNSELING 07/11/2016 ERNESTO SUAREZ A CO FOUNDER AND CEO Ot V72.31 ROUTINE GYNECOLOGICAL EXAMINATION 07/11/2016 ERICKERNESTO ARCE A CO FOUNDER AND CEO Ot V76.12 OTH SCREEN MAMMO-MALIGN NEOPLASM OF JOSEPHINE 07/11/2016 BRITNI CARTWRIGHT CO FOUNDER AND CEO Ot 578.1 BLOOD IN STOOL 07/11/2016 BRITNI CARTWRIGHT CO FOUNDER AND CEO Ot 851.80 BRAIN LACERATION NEC 07/11/2016 BRITNI CARTWRIGHT CO FOUNDER AND CEO Ot V76.12 OTH SCREEN MAMMO-MALIGN NEOPLASM OF JOSEPHINE 07/11/2016 ADAM VALENCIA DO Ot V72.84 EXAM PRE-OPERATIVE NOS 07/12/2016 EVGENY MURPHY PLAYGROUND SUPERVISOR Ot Z12.31 ENCNTR SCREEN MAMMOGRAM FOR MALIGNANT NE 07/12/2016 EVGENY MURPHY PLAYGROUND SUPERVISOR Ot Z12.31 ENCNTR SCREEN MAMMOGRAM FOR MALIGNANT NE 07/24/2016 EVGENY MURPHY PLAYGROUND SUPERVISOR Ot Z12.31 ENCNTR SCREEN MAMMOGRAM FOR MALIGNANT NE 07/29/2016 ERNESTO SUAREZ CO FOUNDER AND CEO Ot V65.49 OTHER SPECIFIED COUNSELING 07/29/2016 ERNESTO SUAREZ CO FOUNDER AND CEO Ot V72.31 ROUTINE GYNECOLOGICAL EXAMINATION 07/29/2016 ERNESTO SUAREZ CO FOUNDER AND CEO Ot V76.12 OTH SCREEN MAMMO-MALIGN NEOPLASM OF JOSEPHINE 07/29/2016 BRITNI CARTWRIGHT CO FOUNDER AND CEO Ot 578.1 BLOOD IN STOOL 07/29/2016 BRITNI CARTWRIGHT CO FOUNDER AND CEO Ot 851.80 BRAIN LACERATION NEC 07/29/2016 BRITNI CARTWRIGHT CO FOUNDER AND CEO Ot V76.12 OTH SCREEN MAMMO-MALIGN NEOPLASM OF JOSEPHINE 07/29/2016 ADAM VALENCIA DO D Ot V72.84 EXAM PRE-OPERATIVE NOS 07/29/2016 EVGENY MURPHY PLAYGROUND SUPERVISOR Ot Z12.31 ENCNTR SCREEN MAMMOGRAM FOR MALIGNANT NE 07/30/2016 LOPEZ DO, DEVIN C Ot K59.09 OTHER CONSTIPATION 07/30/2016 LOPEZ DO, DEVIN C Ot N39.46 MIXED INCONTINENCE 07/30/2016 LOPEZ DO, DEVIN C Ot R10.2 PELVIC AND PERINEAL PAIN 07/30/2016 LOPEZ DO, DEVIN C Ot Z84.2 FAMILY HISTORY OF OTHER DISEASES OF THE 07/31/2016 LOPEZ DO, DEVIN C Ot K59.09 OTHER CONSTIPATION 07/31/2016 LOPEZ DO, DEVIN C Ot N39.46 MIXED INCONTINENCE 07/31/2016 LOPEZ DO, DEVIN C Ot R10.2 PELVIC AND PERINEAL PAIN 07/31/2016 LOPEZ DO, DEVIN C Ot Z84.2 FAMILY HISTORY OF OTHER DISEASES OF THE 08/07/2016 LOPEZ DO, DEVIN C Ot K59.09 OTHER CONSTIPATION 08/07/2016 DEVIN LOPEZ DO Ot N39.46 MIXED INCONTINENCE 08/07/2016 DEVIN LOPEZ DO Ot R10.2 PELVIC AND PERINEAL PAIN 08/07/2016 DEVIN LOPEZ DO Ot Z84.2 FAMILY HISTORY OF OTHER DISEASES OF THE Procedures Code Description [place] [address] UA LONG DIP 07/14 79232 MAMMOGRAM, SCREENING 07/20/2013 50920 ROUTINE VENIPUNCTURE 09/22/2013 32468 LIVER PANEL (LFT) 09/22/2013 33512 GC/CHLAM PROBE (STATE) 10/07/2013 17884 UA LONG DIP 10/07 98379 CULTURE URINE 82257 CULTURE UROGENITAL 10/10/2013 85108 ROUTINE VENIPUNCTURE 01/25/2014 25390 LIVER PANEL (LFT) 01/25/[address] HEAD/BRAIN W/O DYE 02/14/2014 70697 HEMOCCULT 2013 10217 UA LONG DIP 06/13 69450 CULTURE UROGENITAL 06/13/2014 36292 CULTURE URINE Results Test Result Range [id number] - 07/29/16 12:43 Serum or plasma urea nitrogen measurement (mass/volume) 16 mg/dL 7-18 Serum or plasma creatinine measurement (mass/volume) 0.83 mg /dL 0.60-1.30 Serum or plasma urea nitrogen/creatinine mass ratio 19 NRG Serum or plasma creatinine measurement with calculation of estimated glomerular filtration rate > NRG Encounters ACCT No. Visit Date/Time Discharge Status Pt. Type Provider Facility Loc./Unit Complaint [id number] 06/13/2014 10:09:00 06/13/2014 23: 59:59 CLS Outpatient TITI MAGALLON DO [id number] 03/24/2014 14:18:00 03/24/2014 23: 59:59 CLS Outpatient BRITNI CARTWRIGHT APRN [id number] 02/15/2014 14:08:00 02/15/2014 23: 59:59 CLS Outpatient ROCK BETTS APRN [id number] 02/14/2014 14:13:00 02/14/2014 23: 59:59 CLS Outpatient TITI MAGALLON DO [id number] 01/25/2014 08:09:00 01/25/2014 23: 59:59 CLS Outpatient MAGALLON DO TITI Cooley [id number] 10/07/2013 10:11:00 10/07/2013 23: 59:59 CLS Outpatient MAGALLON DO TITI Cooley [id number] 09/22/2013 11:58:00 09/22/2013 23: 59:59 CLS Outpatient MAGALLON DO TITI Cooley [id number] 08/31/2013 11:06:00 08/31/2013 23: 59:59 CLS Outpatient MAGALLON DOTITI [id number] 07/20/2013 07:53:00 07/20/2013 23: 59:59 CLS Outpatient MAGALLON DO TITI Cooley [id number] 07/14/2013 10:24:00 07/14/2013 23: 59:59 CLS Outpatient MAGALLON DOTITI [id number] 06/02/2013 15:25:00 06/02/2013 23: 59:59 CLS Outpatient MAGALLON DOTITI [id number] 05/04/2012 15:04:57 RECURRING
[2016-08-07 16:14] LABS: THYROID STIMULATING HORMONE 3.82 UIU/ML (0.35-4.94)
== END ==
LOC: LAB 15:00
PROVIDERS: ATTEND Obstetrics & Gynecology
DX: R23.2 Flushing (principal); R63.5 Abnormal weight gain
CPT/HCPCS: 36415; 82670; 84439; 84443

== ENCOUNTER 2016-08-14 11:53 | Outpatient (CLI) | payer BC ==
[~2016-08-14] VITALS: Ht 160 cm; Wt 100.7 kg
[~2016-08-14 11:53] MED LIST changes: -CALC-939 PO; -DOCU100T2 PO; -HYDR-3812 PO; -IBUP-1773 PO; -INUL2TAB8 PO; -L GA1CAP2 PO; -MULT-192 PO; -[UNRECOGNIZED DRUG - CODE] PO
[2016-08-14 12:06] VITALS: BP 124/73
[2016-08-14] MEDS ORDERED: CALC-939 PO (12:18)
[2016-08-14] MEDS ORDERED: INUL2TAB8 PO (12:18)
[2016-08-14] MEDS ORDERED: DOCU100T2 PO (12:18)
[2016-08-14] MEDS ORDERED: L GA1CAP2 PO (12:18)
[2016-08-14] MEDS ORDERED: MULT-192 PO (12:18)
[2016-08-14] MEDS ORDERED: [UNRECOGNIZED DRUG - CODE] PO (12:18)
[2016-08-14 12:52] LABS: BASOPHILS % (AUTO) 0 % (0-10); EOSINOPHILS # (AUTO) 0.1 10^3/uL (0.0-0.3); EOSINOPHILS % (AUTO) 2 % (0-10); LYMPHOCYTES # (AUTO) 2.7 X 10^3 (1.0-4.0); LYMPHOCYTES % (AUTO) 45 % (12-44); MEAN CORPUSCULAR HEMOGLOBIN 32 PG (25-34); MEAN CORPUSCULAR HGB CONC 34 G/DL (32-36); MEAN CORPUSCULAR VOLUME 94 FL (80-99); MEAN PLATELET VOLUME 9.6 FL (7.4-10.4); MONOCYTES # (AUTO) 0.5 X 10^3 (0.0-1.0); MONOCYTES % (AUTO) 9 % (0-12); NEUTROPHILS # (AUTO) 2.7 X 10^3 (1.8-7.8); NEUTROPHILS % (AUTO) 45 % (42-75); PLATELET COUNT 199 10^3/uL (130-400); RED BLOOD COUNT 4.68 10^6/uL (4.35-5.85); RED CELL DISTRIBUTION WIDTH 12.4 % (10.0-14.5)
[2016-08-14 12:56] LABS: BILIRUBIN,URINE NEGATIVE (NEGATIVE); KETONES,URINE NEGATIVE (NEGATIVE); LEUKOCYTE ESTERASE ,URINE NEGATIVE (NEGATIVE); NITRITE,URINE NEGATIVE (NEGATIVE); PH,URINE 7 (5-9); PROTEIN,URINE NEGATIVE (NEGATIVE); UROBILINOGEN,URINE NORMAL (NORMAL)
[2016-08-21] MEDS ORDERED: HYDR-3812 PO (09:35)
[2016-08-21] MEDS ORDERED: IBUP-1773 PO (09:35)
== END 2016-08-14 12:50 ==
LOC: PREOP 11:53
PROVIDERS: ATTEND Obstetrics & Gynecology
DX: Z01.812 Encounter for preprocedural laboratory examination (principal); Z11.2 Encounter for screening for other bacterial diseases; N81.9 Female genital prolapse, unspecified; N39.3 Stress incontinence (female) (male)
CPT/HCPCS: 36415; 81000; 85025; 87081

== ENCOUNTER 2016-08-20 09:42 | Day surgery (SDC) | payer BC ==
[~2016-08-20] VITALS: Ht 160 cm; Wt 100.7 kg
[2016-08-20] VITALS (8 sets, daily range): BP systolic 103–136; BP diastolic 59–83
[~2016-08-20 09:42] MED LIST changes: +CALC-939 PO; +DOCU100T2 PO; +INUL2TAB8 PO; +L GA1CAP2 PO; +MULT-192 PO; +[UNRECOGNIZED DRUG - CODE] PO
[2016-08-20] MEDS ORDERED: metroNIDAZOLE 500MG/100ML IVPB 100 ML ONE (09:43)
[2016-08-20] MEDS ORDERED: NS (IVPB) 50 ML ONE (09:43)
[2016-08-20] MEDS ORDERED: ceFAZolin 1,000 MG (ANCEF) VIAL ONE (09:43)
[2016-08-20] MEDS ORDERED: LIDOCAINE 1% 10 MG/ML 0.2 ML SYR (FOR IV START) ONE (09:52)
[2016-08-20] MEDS ORDERED: VASOPRESSIN INJECTION 20 UNIT/ML VIAL ONE (09:54)
[2016-08-20] MEDS ORDERED: NS (IVPB) 100 ML ONE (09:54)
[2016-08-20] MEDS ORDERED: LACTATED RINGERS 1,000 ML IV PRN (09:57)
[2016-08-20] MEDS ORDERED: CATHETER FLUSH 10 ML SYR IV PRN (10:00)
[2016-08-20] MEDS ORDERED: ceFAZolin 1 GM/NS 50 ML IVPB IV ONE ×2 (10:00)
[2016-08-20] MEDS ORDERED: metroNIDAZOLE 500 MG/100 ML IVPB (PRE-MIX) IV ONE (10:00)
[2016-08-20] MEDS ORDERED: DEXAMETHASONE PF 10 MG/ML (DECADRON) VIAL ONE (10:04)
[2016-08-20] MEDS ORDERED: MIDAZOLAM 2 MG/2 ML (VERSED) VIAL ONE (10:04)
[2016-08-20] MEDS ORDERED: proPOfol 200 MG/20 ML (DIPRIVAN) VIAL IV ONE (10:04)
[2016-08-20] MEDS ORDERED: LIDOCAINE PF 2% 10 ML (XYLOCAINE) AMP ONE (10:04)
[2016-08-20] MEDS ORDERED: ONDANSETRON 4 MG/2 ML (SDV) Z0FRAN ONE (10:04)
[2016-08-20] MEDS ORDERED: fentaNYL INJECTION 100 MCG/2 ML AMP ONE ×2 (10:05→12:00)
[2016-08-20] MEDS ORDERED: SEVOFLURANE (ULTANE) 15 ML INHAL SOLN ONE ×6 (10:06→12:40)
[2016-08-20] MEDS ORDERED: LACTATED RINGERS 1,000 ML IV ONE ×2 (10:06→12:17)
--- NOTE | 2016-08-20 11:01 | Progress Note-Pre Operative ---
Pre-Operative Progress Note H&P Reviewed The H&P was reviewed, patient examined and no changes noted. Date H&P Reviewed: Aug 20, 2016 Time H&P Reviewed: 10:50 Pre-Operative Diagnosis: genital prolapse, stress incontinence DEVIN LOPEZ DO Aug 20, 2016 11:01
[2016-08-20] MEDS ORDERED: ESTROGENS CONJ. CREAM 30 GM (PREMARIN) TUBE ONE (11:49)
[2016-08-20] MEDS ORDERED: LACTATED RINGERS 1,000 ML IV SCH (12:55)
[2016-08-20] MEDS ORDERED: HYDROcodone/APAP 5 MG/325 MG (LORTAB) TAB PO PRN (13:00)
[2016-08-20] MEDS ORDERED: ESTRADIOL 0.05 MG TD NR (13:00)
--- NOTE | 2016-08-20 13:02 | Operative Report ---
Operative Report Date of Procedure/Surgery Aug 20, 2016 Surgeon (s) DEVIN LOPEZ DO Stained Glass Glazier Helper (s): Dulce Goldstein APRN Post-Operative Diagnosis same Procedure Performed ant/post repair, solyx sling, perineorrhaphy, Description of Procedure Anesthesia Type: General Estimated blood loss (mL): 200 Specimen(s) collected/removed none Description of the Procedure with informed consent, the patient was taken to the operating room where general anesthesia was found to be adequate. She was prepped and draped in the usual sterile fashion. A Gomez catheter was placed in the bladder. A 3-+ cystocele was again noted. The urethra also showed rotation. of greater than 50 degrees. The anterior vaginal epithelium was injected with dilute vasopressin and then grasped with Allis clamps. It was then incised in the midline. The epithelium was dissected off the underlying fascia laterally to the white line and then the midline cystocele was repaired with interrupted 2-0 Vicryl. The excess epithelium was incised and then the defect was closed with 2- 0 Vicryl in a running fashion. A 1 cm incision was made in the suburethral space with a scalpel about 1.5 cm from the urethral meatus. I dissected bilaterally to the obturator membranes and then inserted the Solyx bilaterally and then tightened under the midurethra. I did a cystoscopy which was negative. There was bilateral urethral efflux of urine. I then kept 300 ml in the bladder and did a Cred. There was minimal leakage. The sling laid gently under the urethra and was not too tight. There was no intravesicular pathology. The incision was closed with 4-0 Monocryl in a running fashion. Gomez was reinserted. The perineum was grasped on either side of the midline with Suki clamps. The posterior epithelium was injected with dilute vasopressin.The perineum was incised in the midline with a scalpel and then the vaginal epithelium was undermined with the Nguyễn scissors. The vaginal epithelium was dissected off the pubovaginal fascia and then the defect was repaired with interrupted figure of 8 stitches of 2-0 Vicryl. I then made a pyramidal incision on the perineum and then trimmed the posterior vaginal epithelium. I then closed the vaginal epithelium with 2-0 Vicryl and the repaired the perineum in a standard fashion. Vaginal pack was placed. Patient was awakened and taken to the recovery room in stable condition. Following the case, instrument counts were correct. The patient was repositioned in the supine position and awakened from general anesthesia without difficulty. She was taken to recovery in stable condition. She will be observed overnight. Findings of the Procedure 3+ cystocele, urethrocele with >50 deg rotation 3-4+ rectocele cuff supported. Allergies and Home Medications Allergies Coded Allergies: latex (Verified Allergy, Unknown, RASH, 08/14/16) sulfamethoxazole (Unverified Allergy, Unknown, 05/13/14) trimethoprim (Unverified Allergy, Unknown, 05/13/14) Home Medications Calcium Phosphate Trib/Vit D3 1 Each Tab.chew, 1 EACH PO DAILY, (Reported) Docusate Sodium 100 Mg Tablet, 100 MG PO DAILY, (Reported) Hydrocodone/Acetaminophen 1 Each Tablet, 1-2 TAB PO Q4H PRN for MODERATE PAIN, # 30 Prescribed by: DEVIN LOPEZ on 08/21/16 0935 Ibuprofen 600 Mg Tablet, 600 MG PO Q6H, #40 Ref 0 Prescribed by: DEVIN LOPEZ on 08/21/16 0935 Inulin 2 Gm Tab.chew, 4 GM PO DAILY, (Reported) take 2 (2 gm gummies) Loratadine/Pseudoephedrine 1 Each Tab.er.24h, 1 EACH PO DAILY, (Reported) Multivitamin 1 Each Tab.chew, 2 EACH PO DAILY, (Reported) l Gasseri/B Bifidum/B Longum 1 Each Capsule, 1 EACH PO DAILY, (Reported) DEVIN LOPEZ DO Aug 20, 2016 13:01
[2016-08-20] MEDS ORDERED: ESTRADIOL 0.1 MG PATCH (CLIMARA) ONE (13:03)
[2016-08-20] MEDS: KETOROLAC 30 MG/ML VIAL IV PRN ×2 (13:13→19:11)
[2016-08-20] MEDS ORDERED: ONDANSETRON 4 MG/2 ML (SDV) Z0FRAN IVP PRN ×2 (13:15→17:30)
[2016-08-20] MEDS ORDERED: fentaNYL INJECTION 100 MCG/2 ML AMP IVP PRN (13:15)
[2016-08-20] MEDS ORDERED: MEPERIDINE (DEMEROL) INJ 50 MG/ML IVP PRN (13:15)
[2016-08-20] MEDS: morphine INJ 10 MG/ML 1ML (SYR OR VIAL) IVP PRN ×2 (13:36→13:40)
[2016-08-20] MEDS: DOCUSATE SODIUM 100 MG (COLACE) CAP PO SCH (20:17)
[2016-08-21] VITALS: BP 99/57
[2016-08-21] MEDS: KETOROLAC 30 MG/ML VIAL IV PRN ×2 (01:49→08:04)
[2016-08-21 05:00] VITALS: BP 103/60
[2016-08-21] MEDS: DOCUSATE SODIUM 100 MG (COLACE) CAP PO SCH (07:59)
[2016-08-21 08:00] VITALS: BP 111/69
[2016-08-21] MEDS ORDERED: HYDR-3812 PO (09:35)
[2016-08-21] MEDS ORDERED: IBUP-1773 PO (09:35)
--- NOTE | 2016-08-21 09:37 | Discharge Inst-Women's Service ---
Discharge Inst-Women's Serv Depart Medication/Instructions New, Converted or Re-Newed RX: RX on Chart Final Diagnosis genital prolapse stress incontinence Consults/Follow Up Additional Follow Up: Yes (1-2 weeks with Terri and 6 weeks) Activity Activity: Activity as Tolerated Driving Instructions: No Driving for 1 Week NO SMOKING: NO SMOKING Nothing Inside Vagina: No Douching, No Skyline, No Tampons Other Activity no lifting over 10 lbs. Keep stools Diet Discharge Diet: No Restrictions Symptoms to Report to : Bleeding Excessive, Fever Over 101 Degrees F, Vaginal Bleeding Increase, Vaginal Discharge Foul For Any Problems or Questions: Contact Your Physician Skin/Wound Care Bathing Instructions: DEVIN Bush DO Aug 21, 2016 09:37
--- NOTE | 2016-08-21 09:38 | Progress Note-Standard ---
Standard Progress Note Progress Notes/Assess & Plan Progress/Assessment & Plan Doing well. Vaginal pack removed. Has not voided. Vital Sign - Last 12Hours 08/21/16 08/21/16 08/21/16 00:00 05:00 08:00 Temp 98.2 98.0 98.3 Pulse 66 69 69 Resp 18 18 18 B/P (MAP) 99/57 103/60 111/69 Pulse Ox 96 96 99 O2 Delivery Room Air Room Air Room Air Intake and Output 08/21/16 00:00 Intake Total 1960 ml Output Total 800 ml Balance 1160 ml POD #1 s/p Anterior posterior colporrhaphy, solyx sling, perineorrhaphy. Will discharge home once voids, or start bladder retraining DEVIN LOPEZ DO Aug 21, 2016 09:38
[2016-08-21 11:15] VITALS: BP 111/69
--- OUTSIDE RECORDS SUMMARY | 2016-09-03 20:50 | XMS REPORT ---
Author Author BRITNI CARTWRIGHT [facility] eClinicalWorks Address Unknown Phone Unavailable Care Team Providers Care Mop Maker Name Role Phone BRITNI CARTWRIGHT Unavailable Allergies No Known Allergies Problems Problem Type Condition ICD-9 Code Onset Dates Condition Status Problem Other specified counseling V65.49 Active Problem Other and unspecified cerebral laceration and contusion, without mention of open intracranial wound, unspecified state of consciousness 851.80 Active Problem Blood in stool 578.1 Active Problem Acute frontal sinusitis 461.1 Active Problem Open wound of vagina, without mention of complication 878.6 Active Problem Unspecified cellulitis and abscess of toe 681.10 Active Problem Neck sprain and strain 847.0 Active Problem Urinary tract infection, site not specified 599.0 Active Problem Leukorrhea, not specified as infective 623.5 Active Problem Contusion of shoulder region 923.00 Active Problem Need for prophylactic vaccination and inoculation, Influenza V04.81 Active Problem Onychia and paronychia of toe 681.11 Active Problem Unspecified breast screening V76.10 Active Problem Routine gynecological examination V72.31 Active Medications No Known Medications Results No Known Results Summary Purpose eClinicalWorks Submission
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
--- OUTSIDE RECORDS SUMMARY | 2016-09-03 20:51 | XMS REPORT ---
Author Author BRITNI CARTWRIGHT [facility] e[employer] Address Unknown Phone Unavailable Care Team Providers Care Endoscopic Technician Name Role Phone BRITNI CARTWRIGHT CP Unavailable Allergies, Adverse Reactions, Alerts Substance Reaction Event Type Band-Aid Info Not Available Drug Allergy Sulfadoxine-Pyrimethamine Info Not Available Drug Allergy Septra Info Not Available Drug Allergy Problems Problem Type Condition Code Onset Dates Condition Status Problem Other [...] Onychia and paronychia of toe 681.11 Active Assessment Dizziness R42 Active Problem Unspecified breast screening V76.10 Active Assessment Eustachian tube dysfunction, unspecified laterality H69.80 Active Problem Routine gynecological examination V72.31 Active Medications Medication Code System Code Instructions Start Date End Date Status Dosage Oxybutynin Chloride [facility] [address]-63 5 mg 1 tablet by Oral route 2 times per day Meloxicam [facility] [address]-67 15 MG Orally Once a day 1 tablet Amoxicillin [facility] [address]-29 875 MG Orally Twice a day Mar 31, 2015 Apr 10, 2015 1 tablet Medrol (Raj) [facility] [address]-69 4 MG Orally Mar 31, 2015 as directed per pack insert Procedures Procedure Coding System Code Date Office Visit, Est Pt., Level 3 CPT-4 13797 Apr 10, 2015 TYMPANOMETRY CPT-4 04961 Apr 10, 2015 Vital Signs Date/Time: Apr 10, 2015 Temperature 98.9 F Weight 208.4 lbs Height 63 in BMI 36.91 Index Blood Pressure Diastolic 64 mmHg Blood Pressure Systolic 122 mmHg Cardiac Monitoring Heart Rate 70 bpm Results No Known Results Summary Purpose eClinicalWorks Submission
--- OUTSIDE RECORDS SUMMARY | 2016-09-03 20:51 | XMS REPORT ---
Author Author BRITNI CARTWRIGHT [facility] eClinical[employer] Address Unknown Phone Unavailable Care Team Providers Care Glass Cut Off Tender Name Role Phone BRITNI CARTWRIGHT CP Unavailable [...] and paronychia of toe 681.11 Active Assessment Encounter for immunization Z23 Active Problem Unspecified breast screening V76.10 Active Assessment Right serous otitis media, unspecified chronicity H65.91 Active Problem Routine gynecological examination V72.31 Active Medications Medication Code System Code Instructions Start Date End Date Status Dosage Meloxicam [facility] [address]-32 15 MG Orally Once a day 1 tablet Hydrocodone-Acetaminophen [facility] [address]-80 10-325 MG Orally every 6 hrs 1 tablet as needed Oxybutynin Chloride [facility] [address]-94 5 mg 1 tablet by Oral route 2 times per day Medrol (Raj) [facility] [address]-80 4 MG Orally Mar 31, 2015 as directed per pack insert Amoxicillin [facility] [address]-42 875 MG Orally Twice a day Mar 31, 2015 Apr 10, 2015 1 tablet Procedures Procedure Coding System Code Date FLUARIX QUAD (3 & UP)-GSK-2014 CPT-4 29226 Mar 31, 2015 SINGLE IMMUNIZATION ADMIN CPT-4 29514 Mar 31, 2015 Office Visit, Est Pt., Level 3 CPT-4 75468 Mar 31, 2015 Vital Signs Date/Time: Mar 31, 2015 Temperature 97.4 F Weight 221 lbs Height 63 in BMI 39.14 Index Blood Pressure Diastolic 68 mmHg Blood Pressure Systolic 120 mmHg Cardiac Monitoring Heart Rate 68 bpm Results No Known Results Immunizations Vaccine Administration Date FLUARIX QUAD (3 & UP)-GSK-2014Mar 31, 2015 Summary Purpose eClinicalWorks Submission
--- OUTSIDE RECORDS SUMMARY | 2016-09-03 20:51 | XMS REPORT ---
Author Author BRITNI CARTWRIGHT [facility] eClinicalWorks Address Unknown Phone Unavailable Care Team Providers Care Cena Name Role Phone BRITNI CARTWRIGHT Unavailable Allergies [...]
--- OUTSIDE RECORDS SUMMARY | 2016-09-03 20:51 | XMS REPORT ---
Author Author BRITNI CARTWRIGHT [facility] eClinicalWorks Address Unknown Phone Unavailable Care Team Providers Care Telemarketing Representative Name Role Phone BRITNI CARTWRIGHT Unavailable Allergies [...]
--- OUTSIDE RECORDS SUMMARY | 2016-09-03 20:51 | XMS REPORT ---
Author Author BRITNI CARTWRIGHT [facility] eClinicalWorks Address Unknown Phone Unavailable Care Team Providers Care Athlete Marketing Agent Name Role Phone BRITNI CARTWRIGHT Unavailable Allergies, Adverse Reactions, Alerts Substance Reaction Event Type Band-Aid Info Not Available Drug Allergy Sulfadoxine-Pyrimethamine Info Not Available Drug Allergy Septra Info Not Available Drug Allergy Problems Problem Type Condition ICD-9 Code Onset [...] and paronychia of toe 681.11 Active Assessment Irritable bowel 564.1 Active Problem Unspecified breast screening V76.10 Active Assessment Rotator cuff injury 959.2 Active Problem Routine gynecological examination V72.31 Active Medications Medication Code System Code Instructions Start Date End Date Status Dosage Ultram [facility] [address]-64 50 MG Orally every 6 hrs PRN Jan 26, 2015 1 tablet as needed cyclobenzaprine [facility] [address]-20 10 mg 1 tablet 2 times per day PRN Oxybutynin Chloride [facility] [address]-11 5 mg 1 tablet by Oral route 2 times per day Procedures Procedure Coding System Code Date Office Visit, Est Pt., Level 3 CPT-4 28648 Jan 26, 2015 Vital Signs Date/Time: Jan 26, 2015 Temperature 98.1 F Weight 223 lbs Height 63 in BMI 39.50 Index Blood Pressure Diastolic 70 mmHg Blood Pressure Systolic 110 mmHg Cardiac Monitoring Heart Rate 78 bpm Results No Known Results Summary Purpose eClinicalWorks Submission
--- OUTSIDE RECORDS SUMMARY | 2016-09-03 20:51 | XMS REPORT ---
Author Author BRITNI CARTWRIGHT [facility] eClinicalWorks Address Unknown Phone Unavailable Care Team Providers Care Coil Placer Name Role Phone BRITNI CARTWRIGHT Unavailable Allergies [...]
--- OUTSIDE RECORDS SUMMARY | 2016-09-03 20:51 | XMS REPORT ---
Author Author BRINTI CARTWRIGHT [facility] eClinicalWorks Address Unknown Phone Unavailable Care Team Providers Care Geriatric Physician Name Role Phone BRITNI CARTWRIGHT CP Unavailable [...] Problem Contusion of shoulder region 923.00 Active Assessment Urinary incontinence, mixed N39.46 Active Problem Need for prophylactic vaccination and inoculation, Influenza V04.81 Active Problem Onychia and paronychia of toe 681.11 Active Assessment Irritable bowel syndrome without diarrhea K58.9 Active Problem Unspecified breast screening V76.10 Active Assessment Dizziness R42 Active Problem Routine gynecological examination V72.31 Active Medications Medication Code System Code Instructions Start Date End Date Status Dosage Colace [facility] [address]-52 100 MG Orally Once a day 1 capsule as needed Cranberry Extract [facility] [address]67 250 MG Orally not defined Procedures Procedure Coding System Code Date Office Visit, Est Pt., Level 3 CPT-4 59664 November 10, 2015 Vital Signs Date/Time: November 10, 2015 Cardiac Monitoring Heart Rate 84 bpm Weight 209.1 lbs Height 63 in Blood Pressure Diastolic 76 mmHg Blood Pressure Systolic 116 mmHg Results No Known Results Summary Purpose eClinicalWorks Submission
--- OUTSIDE RECORDS SUMMARY | 2016-09-03 20:52 | XMS REPORT ---
Author Author BRITNI CARTWRIGHT [facility] eClinicalWorks Address Unknown Phone Unavailable Care Team Providers Care Motion Picture Camera Lens Technician Name Role Phone BRITNI CARTWRIGHT Unavailable Allergies [...]
== END 2016-08-21 11:15 | disposition home or self-care (01) ==
LOC: DELPENDDIS → SDC 09:42 → WS 14:26 → SDC 08-21 11:15
PROVIDERS: ATTEND Obstetrics & Gynecology
DX: N81.10 Cystocele, unspecified (principal); N81.6 Rectocele; N39.3 Stress incontinence (female) (male)
CPT/HCPCS: 94664; 96361; 96375; 96376

== ENCOUNTER → 2017-07-03 | Outpatient (CLI) | payer BC ==
[~2017-07-03] MED LIST changes: +ACHD5005 PO; +IBUP-1773 PO
--- NOTE | 2017-07-03 14:42 | Diagnostic Imaging Report ---
PROCEDURE: US left lower extremity venous. TECHNIQUE: Multiple real-time grayscale images were obtained over the left lower extremity in various projections. Additional duplex Doppler and color Doppler images were also obtained. INDICATION: Left lower extremity swelling and pain. COMPARISON: None. FINDINGS: Visualized deep and superficial venous system is patent. There is no mass or DVT. IMPRESSION: Negative left lower extremity venous Doppler. Dictated by: Dictated on workstation # [id number]
== END ==
LOC: RAD 13:48
PROVIDERS: ATTEND Nurse Practitioner Family
DX: M79.89 Other specified soft tissue disorders (principal); I83.90 Asymptomatic varicose veins of unspecified lower extremity

== ENCOUNTER → 2017-07-18 | Outpatient (CLI) | payer BC ==
--- NOTE | 2017-07-18 18:42 | Diagnostic Imaging Report ---
INDICATION: Routine screening. Comparison is made with prior study from 07/11/2016 and 09/27/2014. The current study was also evaluated with a Computer Aided Detection (CAD) system. Scattered fibroglandular densities are identified bilaterally. There is an ovoid density in the right breast lateral to the nipple line at mid depth which appears slightly more prominent on today's study. Additional views are recommended. No other masses are seen. No malignant appearing microcalcifications are identified. Axillae are unremarkable. IMPRESSION: Right breast density. Additional views including spot compression and rolled CC views are recommended for further evaluation. ACR BI-RADS Category 0: Incomplete. (Needs additional imaging evaluation). Result letter will be mailed to the patient. Note: At least 10% of breast cancer is not imaged by mammography. Dictated by: Dictated on workstation # [id number]
== END ==
LOC: RAD 10:29
PROVIDERS: ATTEND Nurse Practitioner Family
DX: Z12.31 Encounter for screening mammogram for malignant neoplasm of breast (principal)
CPT/HCPCS: 77067

== ENCOUNTER → 2017-08-04 | Outpatient (CLI) | payer BC ==
--- NOTE | 2017-08-04 12:22 | Diagnostic Imaging Report ---
EXAMINATION: Ultrasound of the right breast. INDICATION: Abnormal mammogram. FINDINGS: The screening mammogram performed on 07/18/2017 suggested a new ovoid density in the lateral aspect of the breast. The diagnostic mammogram performed earlier today suggested there may be a benign appearing lesion in this area. On this exam, there is a small 0.6 x 0.2 x 0.4 cm septated cyst in this region. I suspect that this is a benign process and most likely this corresponds to the density seen on the mammogram. I would recommend that a short-term (6 month) followup mammogram and ultrasound exam of the right breast be obtained for continued evaluation. IMPRESSION: There is a small septated cyst in the upper-outer aspect of the right breast. This is most likely a benign process. Recommendations as above. ACR BI-RADS Category 3: Probably benign findings. Dictated by: Dictated on workstation # [id number]
--- NOTE | 2017-08-04 18:11 | Diagnostic Imaging Report ---
EXAMINATION: Unilateral diagnostic right mammogram. The current study was also evaluated with a Computer Aided Detection (CAD) system. INDICATION: Abnormal screening mammogram. FINDINGS: The screening mammogram performed on 07/18/2017 noted a small ovoid density in the right breast lateral to the nipple line at mid depth. This finding was only clearly seen on the craniocaudal view. Compression and rolled views of this area show that the density in question is not as conspicuous. This finding may be in the superior aspect of the breast on the true lateral view. I would recommend that ultrasound of the right breast be performed for further study. IMPRESSION: Ultrasound will be recommended for further evaluation of the small density in the upper-outer aspect of the right breast. ACR BI-RADS Category 0: Incomplete. (Needs additional imaging evaluation). Result letter will be mailed to the patient. Note: At least 10% of breast cancer is not imaged by mammography. Dictated by: Dictated on workstation # [id number]
== END ==
LOC: RAD 08:43
PROVIDERS: ATTEND Nurse Practitioner Family
DX: N60.01 Solitary cyst of right breast (principal); R92.8 Other abnormal and inconclusive findings on diagnostic imaging of breast

== ENCOUNTER → 2018-03-23 | Outpatient (CLI) | payer BC ==
[~2018-03-23] MED LIST changes: +[UNRECOGNIZED DRUG - CODE] PO; -[UNRECOGNIZED DRUG - CODE] PO
--- NOTE | 2018-03-23 14:10 | Diagnostic Imaging Report ---
INDICATION: Right breast cyst. Patient presents for six-month followup. COMPARISON: Correlation is made with the diagnostic mammogram from the same day as well as a right breast ultrasound from 08/04/2017. TECHNIQUE/FINDINGS: Sonographic interrogation of the 10:30 location of the right breast 4 cm from the nipple was performed. The previously noted septated 7 mm x 4 mm cyst is no longer present. No new abnormality is seen. No solid mass is detected. IMPRESSION: Resolution of the previously noted septated cyst at the 10:30 location of the right breast. The patient may return to routine annual screening mammography. ACR BI-RADS Category 1: Negative. Dictated by: Dictated on workstation # [id number]
--- NOTE | 2018-03-23 15:58 | Diagnostic Imaging Report ---
INDICATION: Six-month followup right breast nodule. Correlation is made with prior mammogram from 07/18/2017 and 08/04/2017. 2-D and 3-D lateral right diagnostic mammography was performed with CAD. The previously noted nodular density in the outer right breast is not well seen on today's study. No new mass is seen. No suspicious calcifications are identified. There are benign calcifications on the right. Right axilla is unremarkable. Impression: BI-RADS zero No suspicious abnormalities is identified on today's study. Right breast ultrasound will be performed today. ACR BI-RADS Category 0: Incomplete. (Needs additional imaging evaluation). Result letter will be mailed to the patient. Note: At least 10% of breast cancer is not imaged by mammography. Dictated by: Dictated on workstation # [id number]
== END ==
LOC: RAD 12:32
PROVIDERS: ATTEND Nurse Practitioner
DX: N63.10 Unspecified lump in the right breast, unspecified quadrant (principal)

== ENCOUNTER 2019-07-13 05:40 | Outpatient (CLI) | payer BC ==
[~2019-07-13] VITALS: Ht 160 cm; Wt 95.0 kg
[2019-07-13] MEDS ORDERED: MIRA25TA PO (15:40)
[2019-07-13] MEDS ORDERED: VENL50TA2 PO (15:40)
[2019-07-13] MEDS ORDERED: ESTR42.52 VG (15:40)
[2019-07-16] MEDS ORDERED: ATOR20TA49 PO (08:12)
[2019-07-16] MEDS ORDERED: ACHD5005 PO (09:13)
[2019-07-16] MEDS ORDERED: DOCU-143 PO (09:13)
== END 2019-07-13 15:48 | disposition home or self-care (01) ==
LOC: PREOP 05:40
PROVIDERS: ATTEND Surgery
DX: Z01.818 Encounter for other preprocedural examination (principal)